=== PATIENT | male | born 1965 | race Caucasian/White ===

== ENCOUNTER 2021-03-02 08:52 | Emergency (ER) | payer MEDICAID ==
[~2021-03-02] VITALS: Ht 170.2 cm; Wt 109.1 kg
[~2021-03-02 08:52] MED LIST: [UNRECOGNIZED DRUG - CODE] PO
[2021-03-02 09:13] VITALS: BP 133/77
[2021-03-02] MEDS ORDERED: HYDROCODONE/ACETAMINOPHEN 5-325 MG TABLET PO ONE (09:15)
== END 2021-03-02 10:07 | disposition home or self-care (01) ==
LOC: EMS 08:52
DX: M25.561 Pain in right knee (principal); I10 Essential (primary) hypertension; E78.00 Pure hypercholesterolemia, unspecified
CPT/HCPCS: 99283

== ENCOUNTER 2023-09-26 07:01 | Emergency (ER) | payer MEDICAID, OTHER ==
[~2023-09-26] VITALS: Ht 170.2 cm; Wt 107.7 kg
[2023-09-26 07:03] VITALS: TEMP 98.2
[2023-09-26] MEDS: ONDANSETRON HCL 4 MG TABLET PO ONE (07:42)
[2023-09-26] MEDS: ACETAMINOPHEN 500 MG TABLET PO ONE (07:43)
[2023-09-26 07:59] LABS: BASOPHILS % (AUTO) 0.5 % (0.0-2.0); EOSINOPHILS % (AUTO) 1.6 % (1.0-6.0); HEMATOCRIT 44.3 % (41-53); HEMOGLOBIN 15.2 g/dL (13.5-17.5); LYMPHOCYTES # (AUTO) 1.7 K/uL (1.0-4.8); LYMPHOCYTES % (AUTO) 28.4 % (22.0-44.0); MEAN CORPUSCULAR HEMOGLOBIN 33.3 pg (26.0-34.0); MEAN CORPUSCULAR HGB CONC 34.3 G/dL (31.0-37.0); MEAN CORPUSCULAR VOLUME 97 fL (80-100); MONOCYTES # (AUTO) 0.4 K/uL (0.1-1.0); MONOCYTES % (AUTO) 6.9 % (2.0-9.0); NEUTROPHILS # (AUTO) 3.6 K/uL (1.8-7.7); NEUTROPHILS % (AUTO) 62.6 % (40.0-70.0); PLATELET COUNT (AUTO) 163 K/uL (150-450); RED BLOOD CELL COUNT(AUTO) 4.56 MIL/uL (4.50-5.90); RED CELL DISTRIBUTION WIDTH 13.1 % (11.5-14.5); WHITE BLOOD COUNT (AUTO) 5.8 K/uL (4.5-11.0)
[2023-09-26 08:09] LABS: ANION GAP 8 mmol/L (8-16); CALCIUM, TOTAL 8.6 mg/dL (8.8-10.5); CARBON DIOXIDE 29 mmol/L (22-29); CHLORIDE 101 mmol/L (98-107); CREATININE 0.77 mg/dL (0.60-1.30); GLOMERULAR FILTR. RATE CALC > 60 mL/min (>60); GLUCOSE,RANDOM 110 mg/dL (70-110); POTASSIUM 3.7 mmol/L (3.5-5.1); SODIUM SERUM 138 mmol/L (136-145); UREA NITROGEN, BLOOD 9 mg/dL (7-18)
[2023-09-26 08:15] LABS: B-TYPE NATRIURETIC PEPTIDE 11 pg/mL (0-100)
[2023-09-26 08:17] LABS: TROPONIN I-HIGH SENSITIVITY 5 ng/L (<76)
[2023-09-26 08:33] LABS: ALANINE AMINOTRANSFERASE 23 U/L (12-78); ALBUMIN 3.7 g/dL (3.4-5.0); ALKALINE PHOSPHATASE 103 U/L (46-116); ASPARTATE AMINOTRANSFERASE 39 U/L (15-37); BILIRUBIN,TOTAL 0.7 mg/dL (0.1-1.0); CREATINE KINASE, TOTAL ONLY 131 U/L (39-308); TOTAL PROTEIN, SERUM 7.9 g/dL (6.4-8.2)
[2023-09-26] MEDS ORDERED: ACET-3385 PO (08:42)
[2023-09-26] MEDS ORDERED: AZIT-103 PO (08:42)
[2023-09-26] MEDS: AZITHROMYCIN 500 MG TABLET PO ONE (08:48)
[2023-09-26 09:07] LABS: COVID AG,FIA SOURCE NASAL SWAB
[2023-09-26 10:17] LABS: SARS-COV2 (COVID) ANTIGEN,FIA Negative (Negative)
[2023-09-26 10:26] VITALS: BP 141/87; PULSE 64; RESP 18
== END 2023-09-26 11:59 | disposition home or self-care (01) ==
LOC: EMS 07:01
DX: J18.9 Pneumonia, unspecified organism (principal); E78.00 Pure hypercholesterolemia, unspecified; I10 Essential (primary) hypertension; E78.5 Hyperlipidemia, unspecified; Z20.822 Contact with and (suspected) exposure to COVID-19
CPT/HCPCS: 99285; 70450; 71045; 87426; 80053; 82550; 83880; 84484; 85025; 36415; 93005; Q0162; Q9967